=== PATIENT | female | born 1965 | race Caucasian/White ===

== ENCOUNTER 2017-01-22 19:55 | Emergency (ER) | payer OTHER ==
[~2017-01-22] VITALS: Ht 167.6 cm; Wt 65.8 kg
[~2017-01-22 19:55] MED LIST: AMOXICILLIN500 MG PO; ANAPROX DS550 MG PO; BACTROBAN OINT22 GM PO; BACTROBAN OINT22 GM T; BIAXIN500 MG PO; BUSPIRONE5 MG; CLARITIN10 MG PO; HEP-FORTE1 CAP; HYDROCODONE BIT1 T11 PO; LEXAPRO20 MG PO; MACROBID100 M1 PO; MOTRIN800 MG PO; MUCINEX600 MG PO; NAPROSYN500 MG PO; OSCAL ULTRA 6001 TA1; PENICILLIN V500 MG PO; PERCOCET 325 MG1 TA6 PO; PHENERGAN W/ DE30 ML PO; PREDNICOT10 MG PO; PROAIR HFA0.09 MG/AC INH; PYRIDIUM200 M1 PO; SEPTRA DS 800 M1 TAB PO; SYNTHROID0.025 MG; TOBRADEX 0.1%-0.5 ML OPH; VALIUM10 MG; VENLAFAXINE37.5 M1; VICODIN 5/500 505 MG PO; VICODIN 500 MG-1 TAB PO; VITAMIN D2400 IU; VOLTAREN50 M1 PO; ZITHROMAX Z PA250 MG PO; ZOFRAN ODT4 MG SL
[2017-01-22] MEDS ORDERED: ELMIRON100 MG PO (20:18)
[2017-01-22] MEDS ORDERED: NORETHINDRONE AC5 MG PO (20:18)
[2017-01-22] MEDS ORDERED: NEURONTIN100 MG PO (20:19)
[2017-01-22] MEDS ORDERED: BACTRIM DS 8001 TA1 PO (21:15)
[2017-01-22] MEDS ORDERED: CEPHALEXIN500 M1 PO (21:15)
== END 2017-01-22 21:59 | disposition home or self-care (01) ==
LOC: ED 19:55
DX: L02.212 Cutaneous abscess of back [any part, except buttock and flank] (principal); F17.200 Nicotine dependence, unspecified, uncomplicated; Z98.51 Tubal ligation status; Z98.890 Other specified postprocedural states; Z79.899 Other long term (current) drug therapy; Z88.6 Allergy status to analgesic agent

== ENCOUNTER 2017-02-05 14:51 | Emergency (ER) | payer OTHER ==
[~2017-02-05] VITALS: Ht 167.6 cm; Wt 65.8 kg
[~2017-02-05 14:51] MED LIST changes: +BACTRIM DS 8001 TA1 PO; +CEPHALEXIN500 M1 PO; +ELMIRON100 MG PO; +NEURONTIN100 MG PO; +NORETHINDRONE AC5 MG PO
[2017-02-05] MEDS ORDERED: CLINDAMYCIN HC300 MG PO (16:23)
[2017-02-05] MEDS ORDERED: PREDNISONE20 M1 PO (16:23)
== END 2017-02-05 17:20 | disposition home or self-care (01) ==
LOC: ED 14:51
DX: L03.312 Cellulitis of back [any part except buttock and flank] (principal); Z29.12 Encounter for prophylactic antivenin; F17.200 Nicotine dependence, unspecified, uncomplicated; Z88.6 Allergy status to analgesic agent; Z79.899 Other long term (current) drug therapy

== ENCOUNTER 2017-04-02 16:59 | Inpatient (IN) | payer OTHER ==
[~2017-04-02] VITALS: Ht 168.9 cm; Wt 73.2 kg
[~2017-04-02 16:59] MED LIST changes: +CLINDAMYCIN HC300 MG PO; +PREDNISONE20 M1 PO
[2017-04-02 17:00] VITALS: BP 91/55
[2017-04-02 17:30] LABS: BASO % 0.3 % (0.0-1.0); EOS % 0.5 % (1.0-4.0); HEMATOCRIT 36.8 % (37.0-47.0); HEMOGLOBIN 12.1 g/dl (12.0-16.0); LYMPH % 40.1 % (27.0-41.0); MEAN CELL VOLUME 97.1 fl (81.0-99.0); MEAN CORPUSCULAR HGB 31.9 pg (27.0-31.0); MEAN CORPUSCULAR HGB CONC 32.9 g/dl (33.0-37.0); MEAN PLATELET VOLUME 8.9 fl (9.6-12.3); MONO # 0.3 10*3/uL (0.1-1.0); MONO % 4.5 % (3.0-9.0); NEUT % 54.3 % (47.0-73.0); PLATELET COUNT AUTOMATED 276 10*3/uL (130-400); RED BLOOD COUNT 3.79 10*6/uL (4.10-5.10); RED CELL DISTRI WIDTH 13.2 % (0-14.5); WHITE BLOOD COUNT 7.4 10*3/uL (4.8-10.8)
[2017-04-02 17:40] LABS: PROTHROMBIN TIME 10.5 SECONDS (9.0-12.4)
[2017-04-02 17:44] LABS: ABG BASE EXCESS 0.4 mmol/L (-2.0-2.0); ABG CO2 CONTENT 26.1 mmol/L (23-27); ABG HCO3 24.8 mmol/l (22-26); ABG TEMPERATURE 98.4 F (98.0-99.0); ARTERIAL BLOOD GAS PH 7.396 (7.35-7.45)
[2017-04-02 17:49] LABS: ALBUMIN 3.4 gm/dl (3.1-4.5); ALKALINE PHOSPHATASE 36 U/L (45-117); BILIRUBIN, TOTAL 0.3 mg/dl (0.2-1.0); BUN 10 mg/dl (7-24); C-REACTIVE PROTEIN 0.34 MG/DL (0-0.3); CARBON DIOXIDE 24 mmol/L (21-32); CHLORIDE 108 mmol/L (98-107); CKMB 0.6 ng/ml (0.5-3.6); CPK 85 U/L (26-192); EST GLOM FILT AFRICAN AMERICAN > 60 ml/min; GLUCOSE 95 mg/dL (65-99); MAGNESIUM 2.2 mg/dL (1.5-2.1); POTASSIUM 3.1 mmol/L (3.5-5.1); SGOT/AST 15 IU/L (3-35); SGPT/ALT 14 U/L (12-78); SODIUM 142 mmol/L (136-145); TOTAL PROTEIN 6.4 gm/dL (6.4-8.2)
[2017-04-02 17:53] LABS: TROPONIN I < 0.015 ng/ml (<0.045)
[2017-04-02 18:35] LABS: BILIRUBIN NEGATIVE (NEGATIVE); BLOOD TRACE-INTACT (NEGATIVE); CLARITY SL CLOUDY (CLEAR); COLOR YELLOW (YELLOW); GLUCOSE NEGATIVE (NEGATIVE); KETONE NEGATIVE (NEGATIVE); LEUKO ESTERASE TRACE (NEGATIVE); NITRITE POSITIVE (NEGATIVE); PH 5.5 (5.0-9.0); PROTEIN NEGATIVE (NEGATIVE); SPECIFIC GRAVITY <= 1.005 (1.005-1.030)
[2017-04-02] MEDS ORDERED: DIAZEPAM10 M1 PO (18:45)
[2017-04-02 18:46] LABS: BACTERIA 2+; URINE REFLEX COMMENT YES (NO)
[2017-04-02 18:48] VITALS: BP 97/67
[2017-04-02 18:50] LABS: URINE AMPHETAMINES < 1000 (1000ng/ml); URINE BARBITURATES < 200 (200ng/ml); URINE COCAINE < 300 (300ng/ml)
[2017-04-02 19:47] VITALS: BP 98/62
[2017-04-02 20:00] VITALS: BP 118/76
[2017-04-02 20:40] VITALS: BP 118/76
[2017-04-02] MEDS ORDERED: VITAMIN D50000 UNIT PO (21:46)
[2017-04-03] VITALS: BP 106/60
[2017-04-03 06:31] LABS: BASO % 0.2 % (0.0-1.0); EOS % 0.5 % (1.0-4.0); HEMATOCRIT 33.6 % (37.0-47.0); LYMPH % 52.3 % (27.0-41.0); MEAN CELL VOLUME 99.7 fl (81.0-99.0); MEAN CORPUSCULAR HGB 32.6 pg (27.0-31.0); MEAN CORPUSCULAR HGB CONC 32.7 g/dl (33.0-37.0); MEAN PLATELET VOLUME 9.2 fl (9.6-12.3); MONO # 0.3 10*3/uL (0.1-1.0); MONO % 4.8 % (3.0-9.0); NEUT # 2.4 10*3/uL (2.3-7.9); NEUT % 41.8 % (47.0-73.0); PLATELET COUNT AUTOMATED 239 10*3/uL (130-400); RED BLOOD COUNT 3.37 10*6/uL (4.10-5.10); RED CELL DISTRI WIDTH 13.3 % (0-14.5); WHITE BLOOD COUNT 5.6 10*3/uL (4.8-10.8)
[2017-04-03 06:55] LABS: HEMOGLOBIN A1c 4.7 % (4.8-5.6)
[2017-04-03 07:06] LABS: PROTHROMBIN TIME 10.5 SECONDS (9.0-12.4)
[2017-04-03 07:08] LABS: BUN 7 mg/dl (7-24); CARBON DIOXIDE 25 mmol/L (21-32); CHLORIDE 110 mmol/L (98-107); EST GLOM FILT AFRICAN AMERICAN > 60 ml/min; GLUCOSE 74 mg/dL (65-99); MAGNESIUM 2.1 mg/dL (1.5-2.1); POTASSIUM 3.9 mmol/L (3.5-5.1); SODIUM 143 mmol/L (136-145)
[2017-04-03 07:11] LABS: CHOLESTEROL 148 mg/dL (<200); HDL CHOLESTEROL 33 mg/dl (40-60); LDL CHOLESTEROL 93 mg/dL (9-159); TRIGLYCERIDES 108 mg/dl (<150); VLDL CHOLESTEROL 22 mg/dL (6-40)
[2017-04-03 07:27] LABS: FOLIC ACID 13.08 ng/mL (>5.38); VITAMIN D, 25-HYDROXY 63.1 ng/mL (30-100)
[2017-04-03 08:00] VITALS: BP 102/60
== END 2017-04-03 10:27 | disposition left against medical advice (07) | DRG 923 ==
LOC: ED 16:59 → 5E 20:05 → EDHOLD 20:05 → 5E 20:08
PROVIDERS: Family Medicine; Internal Medicine
DX: T67.1XXA Heat syncope, initial encounter (principal); E87.8 Other disorders of electrolyte and fluid balance, not elsewhere classified; I95.9 Hypotension, unspecified; N30.01 Acute cystitis with hematuria; E83.41 Hypermagnesemia; F12.10 Cannabis abuse, uncomplicated; E87.6 Hypokalemia; F41.9 Anxiety disorder, unspecified; Z53.21 Procedure and treatment not carried out due to patient leaving prior to being seen by health care provider; F32.9 Major depressive disorder, single episode, unspecified; N32.89 Other specified disorders of bladder; Z98.51 Tubal ligation status; Z82.5 Family history of asthma and other chronic lower respiratory diseases; Z83.3 Family history of diabetes mellitus; Z90.710 Acquired absence of both cervix and uterus; Z98.891 History of uterine scar from previous surgery; Z82.49 Family history of ischemic heart disease and other diseases of the circulatory system; Z88.6 Allergy status to analgesic agent; Z84.89 Family history of other specified conditions; Z91.048 Other nonmedicinal substance allergy status; Z79.899 Other long term (current) drug therapy; Z71.6 Tobacco abuse counseling; F17.210 Nicotine dependence, cigarettes, uncomplicated; R00.1 Bradycardia, unspecified

== ENCOUNTER 2017-05-05 12:48 | Emergency (ER) | payer OTHER ==
[~2017-05-05] VITALS: Ht 167.6 cm; Wt 68.0 kg
[~2017-05-05 12:48] MED LIST changes: +DIAZEPAM10 M1 PO; +VITAMIN D50000 UNIT PO
[2017-05-05] MEDS ORDERED: CORTISPORIN SUS10 ML OT (13:06)
== END 2017-05-05 13:10 | disposition home or self-care (01) ==
LOC: ED 12:48
DX: H60.501 Unspecified acute noninfective otitis externa, right ear (principal); F12.10 Cannabis abuse, uncomplicated; F17.200 Nicotine dependence, unspecified, uncomplicated; Z88.6 Allergy status to analgesic agent; Z79.899 Other long term (current) drug therapy

== ENCOUNTER 2019-11-14 20:12 | Emergency (ER) | payer OTHER ==
[~2019-11-14] VITALS: Ht 167.6 cm; Wt 79.4 kg
[~2019-11-14 20:12] MED LIST changes: +CORTISPORIN SUS10 ML OT
== END 2019-11-14 21:24 | disposition home or self-care (01) ==
LOC: ED 20:12
DX: Z48.01 Encounter for change or removal of surgical wound dressing (principal); F17.200 Nicotine dependence, unspecified, uncomplicated; Z91.048 Other nonmedicinal substance allergy status; Z88.8 Allergy status to other drugs, medicaments and biological substances; Z79.899 Other long term (current) drug therapy; Z90.710 Acquired absence of both cervix and uterus